=== PATIENT | female | born 1955 | race Caucasian/White ===

== ENCOUNTER 2021-07-23 06:20 | Emergency (ER) | payer MEDICARE ==
[2021-07-23] MEDS ORDERED: IBUPROFEN 600 MG TAB PO STA (06:53)
[2021-07-23] MEDS ORDERED: AUGMENTIN 500-1 EACH PO (07:00)
[2021-07-23] MEDS ORDERED: CEFTRIAXONE 1 GM VIAL IM ONE (07:00)
[2021-07-23] MEDS ORDERED: BACTRIM DS TAB1 EACH PO (07:00)
[2021-07-23 07:04] VITALS: BP 193/90
== END 2021-07-23 07:04 | disposition left against medical advice (07) ==
LOC: FSED 06:52
DX: L03.115 Cellulitis of right lower limb (principal); R00.0 Tachycardia, unspecified; I16.0 Hypertensive urgency; I10 Essential (primary) hypertension; E03.9 Hypothyroidism, unspecified; F17.210 Nicotine dependence, cigarettes, uncomplicated
CPT/HCPCS: 99282

== ENCOUNTER 2021-09-05 17:05 | Inpatient (IN) | payer MEDICARE ==
[~2021-09-05] VITALS: Ht 167.6 cm; Wt 153.9 kg
[~2021-09-05 17:05] MED LIST: AUGMENTIN 500-1 EACH PO; BACTRIM DS TAB1 EACH PO
[2021-09-05 17:30] LABS: BASOPHILS % 0.5 % (0.0-1.0); HEMATOCRIT 33.4 % (34.2-44.1); HEMOGLOBIN 9.3 g/dL (12.0-16.0); LYMPHOCYTES # (AUTO) 0.7 (1.0-3.2); LYMPHOCYTES % 8.4 % (18.0-39.1); MEAN CORPUSCULAR HEMOGLOBIN 28.2 pg (28-32); MEAN CORPUSCULAR HGB CONC 27.8 g/dL (31-35); MEAN CORPUSCULAR VOLUME 101.2 fL (81-99); MONOCYTES # (AUTO) 0.6 (0.2-0.8); MONOCYTES % 7.7 % (4.4-11.3); NEUTROPHILS # (AUTO) 6.4 (2.1-6.9); NEUTROPHILS % 78.2 % (38.7-80.0); PLATELET COUNT 195 x10e3/uL (140-360); RED CELL DISTRIBUTION WIDTH 19.4 % (11.7-14.4)
[2021-09-05] MEDS ORDERED: DILTIAZEM HCL 5 MG/ML 5 ML VIAL IV STA (17:43)
[2021-09-05 17:48] LABS: ALBUMIN 3.1 g/dL (3.5-5.0); ALBUMIN/GLOBULIN RATIO 0.7 (0.8-2.0); ANION GAP 16.6 mmol/L (8-16); CALCIUM 7.6 mg/dL (8.4-10.2); CREATININE, SERUM 3.66 mg/dL (0.57-1.11)
[2021-09-05 17:52] LABS: POTASSIUM 7.6 mmol/L (3.5-5.1)
[2021-09-05] MEDS ORDERED: SODIUM BICARBONATE 8.4% INJ 50 ML SYR IV STA (17:53)
[2021-09-05] MEDS ORDERED: DEXTROSE 50% SYRINGE 50 ML IV STA (17:53)
[2021-09-05] MEDS ORDERED: SOD POLYSTYRENE SULFONATE SUSP 15 GM/60 ML BTL PO ONE (18:00)
[2021-09-05] MEDS ORDERED: INSULIN REGULAR, HUMAN 100 UNIT/1 ML IV ONE (18:00)
[2021-09-05] MEDS ORDERED: CALCIUM GLUC 1 G/50 ML NACL 50 ML IV ONE (18:06)
[2021-09-05] MEDS ORDERED: SODIUM BICARBONATE 8.4% SYRING 50 ML ONE (18:07)
[2021-09-05] MEDS ORDERED: DEXTROSE 50% SYRINGE 50 ML IV ONE (18:07)
[2021-09-05] MEDS ORDERED: INSULIN REGULAR, HUMAN 100 UNIT/1 ML ONE (18:07)
[2021-09-05] MEDS ORDERED: SODIUM CHLORIDE 0.9% IV ONE (18:15)
[2021-09-05] MEDS ORDERED: CALCIUM GLUCONATE IV ONE (18:15)
[2021-09-05 18:16] LABS: INR 1.15; PROTHROMBIN TIME 15.7 seconds (11.9-14.5)
[2021-09-05 18:24] LABS: ABG HCO3 17 mmol/L (22-26); ABG PCO2 50 mmHg (35-45); ABG PH 7.15 (7.35-7.45); ABG PO2 223 mmHg (80-105)
[2021-09-05 18:25] LABS: ABG TCO2 19
[2021-09-05] MEDS ORDERED: ASPIRIN 81 MG CHEW TAB PO ONE (19:15)
[2021-09-05] MEDS ORDERED: SODIUM CHLORIDE 0.9% 1000ML 2,000 ML IV PRN (20:00)
[2021-09-05] MEDS ORDERED: HEPARIN SOD (PORCINE) 1000 UNIT/ML SDV IV PRN (20:00)
[2021-09-05 20:09] LABS: ABG HCO3 16 mmol/L (22-26); ABG PCO2 54 mmHg (35-45); ABG PH 7.08 (7.35-7.45); ABG PO2 144 mmHg (80-105); ABG TCO2 18
[2021-09-05 20:38] LABS: CLARITY,URINE SL CLOUDY (CLEAR); COLOR,URINE YELLOW (YELLOW); LEUKOCYTE ESTERASE ,URINE NEGATIVE (NEGATIVE); NITRITE,URINE NEGATIVE (NEGATIVE)
[2021-09-05 20:39] LABS: KETONES,URINE NEGATIVE (NEGATIVE); PROTEIN,URINE DIPSTICK >=300 (NEGATIVE); URINE UROBILINOGEN 0.2 mg/dL (0.2 - 1)
[2021-09-05 20:43] LABS: AMORPHOUS SEDIMENT,URINE FEW (FEW); BACTERIA,URINE FEW /HPF; EPITHELIAL CELLS,URINE FEW /LPF; RBC,URINE 0-5 /HPF (0-5); WBC,URINE (MAN) 0-5 /HPF (0-5)
[2021-09-05 21:36] LABS: HYPOCHROMASIA SLIGHT; LYMPHOCYTES % (MANUAL) 8 % (19-48); MONOCYTES % (MANUAL) 12 % (3.4-9.0); NEUTROPHILS % (MANUAL) 77 % (40-74); PLATELET ESTIMATE ADEQUATE; PLATELET MORPHOLOGY COMMENT NORMAL; RBC MORPHOLOGY COMMENT NORMAL
[2021-09-05] MEDS ORDERED: ASPIRIN 81 MG CHEW TAB ONE (23:06)
[2021-09-06] VITALS (31 sets, daily range): BP systolic 91–146; BP diastolic 53–129
[2021-09-06 00:55] LABS: ABG HCO3 19 mmol/L (22-26); ABG PCO2 47 mmHg (35-45); ABG PH 7.21 (7.35-7.45); ABG PO2 184 mmHg (80-105); ABG TCO2 20
[2021-09-06] MEDS ORDERED: LISINOPRIL10 MG PO (02:54)
[2021-09-06] MEDS ORDERED: METHIMAZOLE10 MG PO (02:54)
[2021-09-06] MEDS ORDERED: ZESTRIL10 MG PO (02:54)
[2021-09-06 05:09] LABS: HEMATOCRIT 26.2 % (34.2-44.1); HEMOGLOBIN 7.5 g/dL (12.0-16.0); LYMPHOCYTES # (AUTO) 0.5 (1.0-3.2); LYMPHOCYTES % 9.2 % (18.0-39.1); MEAN CORPUSCULAR HGB CONC 28.6 g/dL (31-35); MEAN CORPUSCULAR VOLUME 97.8 fL (81-99); MONOCYTES # (AUTO) 0.1 (0.2-0.8); MONOCYTES % 2.4 % (4.4-11.3); NEUTROPHILS # (AUTO) 4.2 (2.1-6.9); NEUTROPHILS % 86.4 % (38.7-80.0); PLATELET COUNT 155 x10e3/uL (140-360); RED BLOOD COUNT 2.68 x10e6/uL (3.6-5.1); RED CELL DISTRIBUTION WIDTH 18.8 % (11.7-14.4)
[2021-09-06 05:35] LABS: ANION GAP 14.1 mmol/L (8-16); CALCIUM 7.7 mg/dL (8.4-10.2); CREATININE, SERUM 3.3 mg/dL (0.57-1.11); MAGNESIUM 2.1 MG/DL (1.3-2.1)
[2021-09-06 05:54] LABS: POTASSIUM 6.1 mmol/L (3.5-5.1)
[2021-09-06 06:24] LABS: CREATINE KINASE MB 1.9 ng/mL (0-5.0)
[2021-09-06] MEDS ORDERED: DEXTROSE 50% SYRINGE 50 ML IV ONE (08:00)
[2021-09-06] MEDS ORDERED: INSULIN REGULAR, HUMAN 100 UNIT/1 ML IV ONE (08:00)
[2021-09-06] MEDS ORDERED: CALCIUM GLUC 1 G/50 ML NACL 50 ML IV ONE (08:00)
[2021-09-06] MEDS ORDERED: SODIUM CHLORIDE 0.9% 1000ML 2,000 ML IV PRN (08:30)
[2021-09-06] MEDS ORDERED: HEPARIN SOD (PORCINE) 1000 UNIT/ML SDV IV PRN (08:30)
[2021-09-06] MEDS ORDERED: MANNITOL 25% 12.5GM/50 ML VIAL IV PRN (08:30)
[2021-09-06] MEDS ORDERED: Vancomycin IV 1 GM in SODIUM CHLORIDE 0.9% 250ML 250 ML IV ONE ×2 (09:00→13:00)
[2021-09-06] MEDS ORDERED: AMIODARONE HCL 150 MG/100 ML BAG IV ONE (10:30)
[2021-09-06] MEDS ORDERED: AMIODARONE 900MG 500 ML IV SCH (10:40)
[2021-09-06 11:42] LABS: CREATININE,URINE RANDOM 245.31 mg/dL (47-110)
[2021-09-06 12:06] LABS: CREATINE KINASE MB 1.6 ng/mL (0-5.0)
[2021-09-06 12:21] LABS: FREE THYROXINE INDEX 1.9594 (1.4-3.8); THYROID STIMULATING HORMONE 0.058 uIU/mL (0.350-4.940)
[2021-09-06 13:13] LABS: TOTAL PROTEIN, URINE 423.3 mg/dL (1-14)
[2021-09-06] MEDS ORDERED: DEXTROSE 50% SYRINGE 50 ML IV PRN (13:30)
[2021-09-06] MEDS: METOPROLOL TARTRATE INJ 1 MG/ML VIAL IV PRN ×2 (14:01→20:03)
[2021-09-06] MEDS: INSULIN LISPRO 100 UNIT/1 ML 3ML VIAL SQ SCH ×2 (16:30→21:00)
[2021-09-06 19:19] LABS: CREATINE KINASE MB 1.2 ng/mL (0-5.0)
[2021-09-07] VITALS (26 sets, daily range): BP systolic 82–125; BP diastolic 53–80
[2021-09-07] MEDS: METOPROLOL TARTRATE INJ 1 MG/ML VIAL IV PRN ×3 (00:13→16:19)
[2021-09-07 05:21] LABS: ALBUMIN 2.6 g/dL (3.5-5.0); ALBUMIN/GLOBULIN RATIO 0.7 (0.8-2.0); ANION GAP 13.5 mmol/L (8-16); CALCIUM 7.3 mg/dL (8.4-10.2); CREATININE, SERUM 3.07 mg/dL (0.57-1.11); POTASSIUM 4.5 mmol/L (3.5-5.1)
[2021-09-07] MEDS: INSULIN LISPRO 100 UNIT/1 ML 3ML VIAL SQ SCH ×4 (07:21→20:37)
[2021-09-07] MEDS: FUROSEMIDE INJ 10 MG/ML 4 ML VIAL IV SCH ×2 (10:30→17:16)
[2021-09-07 10:37] LABS: % IRON SATURATION 13 % (15-50); IRON 32 ug/dL (50-170); TOTAL IRON BINDING CAPACITY 253 ug/dL (261-478); TRANSFERRIN 181 mg/dL (180-382)
[2021-09-07] MEDS: AMIODARONE HCL 200 MG TAB PO SCH (17:29)
[2021-09-07] MEDS: METOPROLOL TARTRATE 25 MG TAB PO SCH ×2 (17:29→17:35)
[2021-09-07] MEDS ORDERED: DIGOXIN INJ 0.25 MG/ML 2 ML AMP IV ONE (17:30)
[2021-09-08] VITALS (26 sets, daily range): BP systolic 83–134; BP diastolic 52–97
[2021-09-08] MEDS: FUROSEMIDE INJ 10 MG/ML 4 ML VIAL IV SCH ×3 (01:55→17:00)
[2021-09-08 04:43] LABS: BASOPHILS % 0.2 % (0.0-1.0); EOSINOPHILS # (AUTO) 0.1 (0.0-0.4); EOSINOPHILS % 0.8 % (0.0-6.0); HEMATOCRIT 27.5 % (34.2-44.1); HEMOGLOBIN 8.1 g/dL (12.0-16.0); LYMPHOCYTES # (AUTO) 1.1 (1.0-3.2); LYMPHOCYTES % 16.4 % (18.0-39.1); MEAN CORPUSCULAR HEMOGLOBIN 28.1 pg (28-32); MEAN CORPUSCULAR HGB CONC 29.5 g/dL (31-35); MEAN CORPUSCULAR VOLUME 95.5 fL (81-99); MONOCYTES # (AUTO) 0.6 (0.2-0.8); MONOCYTES % 8.9 % (4.4-11.3); NEUTROPHILS # (AUTO) 4.7 (2.1-6.9); NEUTROPHILS % 73.2 % (38.7-80.0); PLATELET COUNT 144 x10e3/uL (140-360); RED BLOOD COUNT 2.88 x10e6/uL (3.6-5.1); RED CELL DISTRIBUTION WIDTH 18.2 % (11.7-14.4)
[2021-09-08 05:03] LABS: ALBUMIN 2.7 g/dL (3.5-5.0); ALBUMIN/GLOBULIN RATIO 0.7 (0.8-2.0); ANION GAP 17.2 mmol/L (8-16); CREATININE, SERUM 3.56 mg/dL (0.57-1.11); POTASSIUM 4.2 mmol/L (3.5-5.1)
[2021-09-08 05:48] LABS: CALCIUM 6.9 mg/dL (8.4-10.2)
[2021-09-08] MEDS: METOPROLOL TARTRATE 25 MG TAB PO SCH ×5 (06:04→23:33)
[2021-09-08] MEDS: INSULIN LISPRO 100 UNIT/1 ML 3ML VIAL SQ SCH ×4 (07:30→20:31)
[2021-09-08] MEDS: AMIODARONE HCL 200 MG TAB PO SCH ×2 (08:22→17:00)
[2021-09-08] MEDS: METHIMAZOLE 5 MG TAB PO SCH (08:22)
[2021-09-08] MEDS: AMIODARONE 900MG 900 MG in Premix Bag 1 BAG IV SCH (13:17)
[2021-09-08] MEDS ORDERED: DIPHENOXYLATE/ATROPINE TAB PO ONE (18:30)
[2021-09-08] MEDS ORDERED: DIPHENOXYLATE/ATROPINE TAB PO PRN (18:30)
[2021-09-09] VITALS (26 sets, daily range): BP systolic 94–127; BP diastolic 61–113
[2021-09-09] MEDS: FUROSEMIDE INJ 10 MG/ML 4 ML VIAL IV SCH ×3 (02:29→17:03)
[2021-09-09] MEDS: METOPROLOL TARTRATE INJ 1 MG/ML VIAL IV PRN (04:57)
[2021-09-09] MEDS: METOPROLOL TARTRATE 25 MG TAB PO SCH ×4 (05:51→22:56)
[2021-09-09] MEDS: INSULIN LISPRO 100 UNIT/1 ML 3ML VIAL SQ SCH ×4 (07:30→20:13)
[2021-09-09] MEDS: METHIMAZOLE 5 MG TAB PO SCH (08:04)
[2021-09-09] MEDS: AMIODARONE HCL 200 MG TAB PO SCH ×2 (08:04→16:33)
[2021-09-09] MEDS: AMIODARONE 900MG 900 MG in Premix Bag 1 BAG IV SCH (16:08)
[2021-09-09] MEDS: APIXAB 2.5 MG TABLET PO SCH (16:33)
[2021-09-10] VITALS (25 sets, daily range): BP systolic 86–119; BP diastolic 49–90
[2021-09-10] MEDS: FUROSEMIDE INJ 10 MG/ML 4 ML VIAL IV SCH ×3 (02:15→12:07)
[2021-09-10] MEDS: METOPROLOL TARTRATE 25 MG TAB PO SCH ×4 (04:28→17:28)
[2021-09-10 07:28] LABS: ALBUMIN/GLOBULIN RATIO 0.9 (0.8-2.0); ANION GAP 15.2 mmol/L (8-16); CALCIUM 7.1 mg/dL (8.4-10.2); CREATININE, SERUM 4.05 mg/dL (0.57-1.11); POTASSIUM 4.2 mmol/L (3.5-5.1)
[2021-09-10] MEDS: INSULIN LISPRO 100 UNIT/1 ML 3ML VIAL SQ SCH ×4 (07:30→21:00)
[2021-09-10 08:26] LABS: BASOPHILS % 0.4 % (0.0-1.0); EOSINOPHILS # (AUTO) 0.2 (0.0-0.4); EOSINOPHILS % 2.2 % (0.0-6.0); HEMATOCRIT 29.7 % (34.2-44.1); HEMOGLOBIN 8.5 g/dL (12.0-16.0); LYMPHOCYTES # (AUTO) 1.3 (1.0-3.2); LYMPHOCYTES % 18.2 % (18.0-39.1); MEAN CORPUSCULAR HEMOGLOBIN 28.1 pg (28-32); MEAN CORPUSCULAR HGB CONC 28.6 g/dL (31-35); MEAN CORPUSCULAR VOLUME 98.3 fL (81-99); MONOCYTES # (AUTO) 0.5 (0.2-0.8); MONOCYTES % 7.3 % (4.4-11.3); NEUTROPHILS # (AUTO) 5.1 (2.1-6.9); NEUTROPHILS % 71.3 % (38.7-80.0); PLATELET COUNT 168 x10e3/uL (140-360); RED BLOOD COUNT 3.02 x10e6/uL (3.6-5.1)
[2021-09-10] MEDS: AMIODARONE HCL 200 MG TAB PO SCH ×2 (08:26→17:28)
[2021-09-10] MEDS: METHIMAZOLE 5 MG TAB PO SCH (08:26)
[2021-09-10] MEDS: APIXAB 2.5 MG TABLET PO SCH ×2 (08:26→17:28)
[2021-09-10] MEDS: AMIODARONE 900MG 900 MG in Premix Bag 1 BAG IV SCH ×2 (12:07→21:10)
[2021-09-10] MEDS ORDERED: AMIODARONE 900MG 500 ML IV ONE (19:16)
[2021-09-11] VITALS (28 sets, daily range): BP systolic 92–157; BP diastolic 48–112
[2021-09-11] MEDS: FUROSEMIDE INJ 10 MG/ML 4 ML VIAL IV SCH ×3 (02:13→18:00)
[2021-09-11] MEDS: METOPROLOL TARTRATE 25 MG TAB PO SCH ×4 (06:18→18:04)
[2021-09-11] MEDS: INSULIN LISPRO 100 UNIT/1 ML 3ML VIAL SQ SCH ×4 (07:30→20:54)
[2021-09-11] MEDS ORDERED: BENZOCAINE 20% SPR 60 ML CAN ONE (08:34)
[2021-09-11] MEDS ORDERED: SODIUM CHLORIDE 0.9% 1000ML 1,000 ML ONE (08:34)
[2021-09-11] MEDS: APIXAB 2.5 MG TABLET PO SCH ×2 (09:00→18:04)
[2021-09-11] MEDS: AMIODARONE HCL 200 MG TAB PO SCH ×2 (09:00→18:04)
[2021-09-11] MEDS ORDERED: ALBUMIN 25% 25GM 100ML 100 ML IV ONE ×2 (10:00→11:00)
[2021-09-11] MEDS ORDERED: ALBUMIN 25% 25GM 100ML 0.25 GM/ML BTL IV ONE ×2 (10:00)
[2021-09-11] MEDS ORDERED: PROPOFOL IV EMULSION 10 MG/ML 20 ML VIAL ONE (12:04)
[2021-09-11] MEDS ORDERED: LIDOCAINE HCL 2% LOCAL INJ 5 ML SDV VIAL INJ ONE (12:04)
[2021-09-11] MEDS ORDERED: KETAMINE HCL INJ 50 MG/ML 10 ML VIAL ONE (12:27)
[2021-09-11] MEDS: METHIMAZOLE 5 MG TAB PO SCH (15:03)
[2021-09-12] VITALS (30 sets, daily range): BP systolic 89–158; BP diastolic 37–127
[2021-09-12] MEDS: FUROSEMIDE INJ 10 MG/ML 4 ML VIAL IV SCH (02:01)
[2021-09-12 05:46] LABS: ALBUMIN 3.3 g/dL (3.5-5.0); ALBUMIN/GLOBULIN RATIO 0.9 (0.8-2.0); ANION GAP 17.3 mmol/L (8-16); CREATININE, SERUM 4.71 mg/dL (0.57-1.11); POTASSIUM 4.3 mmol/L (3.5-5.1)
[2021-09-12 05:50] LABS: CALCIUM 6.8 mg/dL (8.4-10.2)
[2021-09-12] MEDS: METOPROLOL TARTRATE 25 MG TAB PO SCH ×5 (06:03→23:31)
[2021-09-12] MEDS: INSULIN LISPRO 100 UNIT/1 ML 3ML VIAL SQ SCH ×4 (07:30→20:57)
[2021-09-12] MEDS: APIXAB 2.5 MG TABLET PO SCH ×2 (08:47→17:09)
[2021-09-12] MEDS: METHIMAZOLE 5 MG TAB PO SCH (08:47)
[2021-09-12] MEDS: AMIODARONE HCL 200 MG TAB PO SCH ×2 (08:47→17:09)
[2021-09-12] MEDS: FUROSEMIDE 40 MG TAB PO SCH (17:09)
[2021-09-13] VITALS (37 sets, daily range): BP systolic 96–143; BP diastolic 35–79
[2021-09-13 05:26] LABS: ALBUMIN 3.2 g/dL (3.5-5.0); ALBUMIN/GLOBULIN RATIO 0.8 (0.8-2.0); ANION GAP 18.2 mmol/L (8-16); CALCIUM 7.3 mg/dL (8.4-10.2); POTASSIUM 4.2 mmol/L (3.5-5.1)
[2021-09-13] MEDS: FUROSEMIDE 40 MG TAB PO SCH ×2 (05:47→17:12)
[2021-09-13] MEDS: METOPROLOL TARTRATE 25 MG TAB PO SCH ×3 (05:48→17:13)
[2021-09-13] MEDS: INSULIN LISPRO 100 UNIT/1 ML 3ML VIAL SQ SCH ×4 (07:16→20:43)
[2021-09-13] MEDS: AMIODARONE HCL 200 MG TAB PO SCH ×2 (08:34→17:12)
[2021-09-13] MEDS: APIXAB 2.5 MG TABLET PO SCH ×2 (08:34→17:12)
[2021-09-13] MEDS: METHIMAZOLE 5 MG TAB PO SCH (11:16)
[2021-09-14] VITALS (12 sets, daily range): BP systolic 97–134; BP diastolic 49–81
[2021-09-14] MEDS: METOPROLOL TARTRATE 25 MG TAB PO SCH ×4 (00:12→17:39)
[2021-09-14 04:37] LABS: ALBUMIN 3.1 g/dL (3.5-5.0); ALBUMIN/GLOBULIN RATIO 0.8 (0.8-2.0); CREATININE, SERUM 4.49 mg/dL (0.57-1.11)
[2021-09-14] MEDS: FUROSEMIDE 40 MG TAB PO SCH ×2 (05:41→17:37)
[2021-09-14] MEDS: INSULIN LISPRO 100 UNIT/1 ML 3ML VIAL SQ SCH ×4 (07:30→21:00)
[2021-09-14 07:40] LABS: BASOPHILS # (AUTO) 0.1 (0.0-0.1); BASOPHILS % 0.7 % (0.0-1.0); EOSINOPHILS # (AUTO) 0.2 (0.0-0.4); EOSINOPHILS % 2.8 % (0.0-6.0); HEMATOCRIT 28.8 % (34.2-44.1); HEMOGLOBIN 8.4 g/dL (12.0-16.0); LYMPHOCYTES # (AUTO) 1.1 (1.0-3.2); LYMPHOCYTES % 15.1 % (18.0-39.1); MEAN CORPUSCULAR HEMOGLOBIN 28.2 pg (28-32); MEAN CORPUSCULAR HGB CONC 29.2 g/dL (31-35); MEAN CORPUSCULAR VOLUME 96.6 fL (81-99); MONOCYTES # (AUTO) 0.7 (0.2-0.8); MONOCYTES % 9.4 % (4.4-11.3); NEUTROPHILS % 71.4 % (38.7-80.0); PLATELET COUNT 187 x10e3/uL (140-360); RED BLOOD COUNT 2.98 x10e6/uL (3.6-5.1); RED CELL DISTRIBUTION WIDTH 17.7 % (11.7-14.4)
[2021-09-14] MEDS: AMIODARONE HCL 200 MG TAB PO SCH ×2 (09:00→12:12)
[2021-09-14] MEDS: APIXAB 2.5 MG TABLET PO SCH (09:00)
[2021-09-14] MEDS: HEPARIN 25,000 UNIT 1,000 UNIT in DEXTROSE 5% 250ML 250 ML IV SCH ×2 (11:57→20:00)
[2021-09-14] MEDS ORDERED: SODIUM CHLORIDE 0.9% 250ML 250 ML ONE (12:06)
[2021-09-14] MEDS: METHIMAZOLE 5 MG TAB PO SCH (12:11)
[2021-09-14 12:23] LABS: INR 0.99
[2021-09-15] VITALS (7 sets, daily range): BP systolic 99–132; BP diastolic 58–92
[2021-09-15] MEDS: HEPARIN 25,000 UNIT 1,000 UNIT in DEXTROSE 5% 250ML 250 ML IV SCH ×3 (03:14→22:00)
[2021-09-15] MEDS: FUROSEMIDE 40 MG TAB PO SCH ×2 (06:49→18:00)
[2021-09-15 07:04] LABS: BASOPHILS # (AUTO) 0.1 (0.0-0.1); BASOPHILS % 0.7 % (0.0-1.0); EOSINOPHILS # (AUTO) 0.3 (0.0-0.4); EOSINOPHILS % 3.7 % (0.0-6.0); HEMATOCRIT 30.5 % (34.2-44.1); HEMOGLOBIN 8.8 g/dL (12.0-16.0); LYMPHOCYTES # (AUTO) 1.3 (1.0-3.2); LYMPHOCYTES % 16.2 % (18.0-39.1); MEAN CORPUSCULAR HEMOGLOBIN 27.8 pg (28-32); MEAN CORPUSCULAR HGB CONC 28.9 g/dL (31-35); MEAN CORPUSCULAR VOLUME 96.5 fL (81-99); MONOCYTES # (AUTO) 0.9 (0.2-0.8); MONOCYTES % 11.3 % (4.4-11.3); NEUTROPHILS # (AUTO) 5.5 (2.1-6.9); NEUTROPHILS % 67.5 % (38.7-80.0); PLATELET COUNT 189 x10e3/uL (140-360); RED BLOOD COUNT 3.16 x10e6/uL (3.6-5.1); RED CELL DISTRIBUTION WIDTH 17.4 % (11.7-14.4)
[2021-09-15 07:29] LABS: ALBUMIN 3.2 g/dL (3.5-5.0); ALBUMIN/GLOBULIN RATIO 0.9 (0.8-2.0); ANION GAP 14.8 mmol/L (8-16); CREATININE, SERUM 3.32 mg/dL (0.57-1.11); POTASSIUM 3.8 mmol/L (3.5-5.1)
[2021-09-15] MEDS: INSULIN LISPRO 100 UNIT/1 ML 3ML VIAL SQ SCH ×4 (07:30→20:37)
[2021-09-15] MEDS: METOPROLOL TARTRATE 25 MG TAB PO SCH ×4 (07:39→19:01)
[2021-09-15] MEDS: METHIMAZOLE 5 MG TAB PO SCH (08:55)
[2021-09-15] MEDS: AMIODARONE HCL 200 MG TAB PO SCH ×2 (08:55→16:19)
[2021-09-15] MEDS ORDERED: LIDOCAINE HCL 1% LOCAL INJ 20 ML VIAL INJ ONE (09:00)
[2021-09-15] MEDS ORDERED: HEPARIN 25,000 UNIT 25,000 UNIT in DEXTROSE 5% 250ML 250 ML IV SCH (09:30)
[2021-09-15] MEDS ORDERED: HEPARIN 25,000 UNIT DRIP IV ONE (10:00)
[2021-09-16] VITALS (8 sets, daily range): BP systolic 101–127; BP diastolic 49–67
[2021-09-16] MEDS: METOPROLOL TARTRATE 25 MG TAB PO SCH ×4 (00:36→17:30)
[2021-09-16] MEDS: FUROSEMIDE 40 MG TAB PO SCH ×2 (05:41→17:12)
[2021-09-16 06:47] LABS: BASOPHILS # (AUTO) 0.1 (0.0-0.1); BASOPHILS % 0.8 % (0.0-1.0); EOSINOPHILS # (AUTO) 0.3 (0.0-0.4); EOSINOPHILS % 3.6 % (0.0-6.0); HEMATOCRIT 29.7 % (34.2-44.1); HEMOGLOBIN 8.6 g/dL (12.0-16.0); LYMPHOCYTES # (AUTO) 1.1 (1.0-3.2); LYMPHOCYTES % 14.8 % (18.0-39.1); MEAN CORPUSCULAR HEMOGLOBIN 27.7 pg (28-32); MEAN CORPUSCULAR VOLUME 95.8 fL (81-99); MONOCYTES # (AUTO) 0.9 (0.2-0.8); MONOCYTES % 12.6 % (4.4-11.3); NEUTROPHILS # (AUTO) 4.9 (2.1-6.9); NEUTROPHILS % 67.1 % (38.7-80.0); PLATELET COUNT 186 x10e3/uL (140-360); RED CELL DISTRIBUTION WIDTH 17.6 % (11.7-14.4)
[2021-09-16 07:10] LABS: ALBUMIN 3.2 g/dL (3.5-5.0); ALBUMIN/GLOBULIN RATIO 0.9 (0.8-2.0); ANION GAP 16.9 mmol/L (8-16); CALCIUM 7.8 mg/dL (8.4-10.2); CREATININE, SERUM 4.27 mg/dL (0.57-1.11); POTASSIUM 3.9 mmol/L (3.5-5.1)
[2021-09-16] MEDS: INSULIN LISPRO 100 UNIT/1 ML 3ML VIAL SQ SCH ×4 (07:30→21:00)
[2021-09-16] MEDS: AMIODARONE HCL 200 MG TAB PO SCH ×2 (08:28→17:12)
[2021-09-16] MEDS: METHIMAZOLE 5 MG TAB PO SCH (08:28)
[2021-09-16] MEDS ORDERED: LIDOCAINE HCL 1% LOCAL INJ 20 ML VIAL INJ ONE (10:00)
[2021-09-16] MEDS ORDERED: SODIUM HYPOCHLORITE 0.25% 480 ML SOLN IR ONE (10:15)
[2021-09-16] MEDS: APIXAB 2.5 MG TABLET PO SCH (19:14)
[2021-09-17] VITALS (8 sets, daily range): BP systolic 109–146; BP diastolic 51–72
[2021-09-17 05:59] LABS: BASOPHILS # (AUTO) 0.1 (0.0-0.1); BASOPHILS % 0.8 % (0.0-1.0); EOSINOPHILS # (AUTO) 0.2 (0.0-0.4); EOSINOPHILS % 3.3 % (0.0-6.0); HEMATOCRIT 32.7 % (34.2-44.1); HEMOGLOBIN 9.2 g/dL (12.0-16.0); LYMPHOCYTES # (AUTO) 1.2 (1.0-3.2); LYMPHOCYTES % 16.7 % (18.0-39.1); MEAN CORPUSCULAR HEMOGLOBIN 27.8 pg (28-32); MEAN CORPUSCULAR HGB CONC 28.1 g/dL (31-35); MEAN CORPUSCULAR VOLUME 98.8 fL (81-99); MONOCYTES # (AUTO) 0.9 (0.2-0.8); MONOCYTES % 11.7 % (4.4-11.3); NEUTROPHILS # (AUTO) 4.9 (2.1-6.9); NEUTROPHILS % 66.5 % (38.7-80.0); PLATELET COUNT 181 x10e3/uL (140-360); RED BLOOD COUNT 3.31 x10e6/uL (3.6-5.1); RED CELL DISTRIBUTION WIDTH 17.7 % (11.7-14.4)
[2021-09-17] MEDS: FUROSEMIDE 40 MG TAB PO SCH ×2 (06:00→18:00)
[2021-09-17 06:20] LABS: ALBUMIN 3.2 g/dL (3.5-5.0); ALBUMIN/GLOBULIN RATIO 0.9 (0.8-2.0); ANION GAP 18.2 mmol/L (8-16); CALCIUM 7.9 mg/dL (8.4-10.2); CREATININE, SERUM 4.87 mg/dL (0.57-1.11); POTASSIUM 4.2 mmol/L (3.5-5.1)
[2021-09-17] MEDS: INSULIN LISPRO 100 UNIT/1 ML 3ML VIAL SQ SCH ×5 (07:02→20:39)
[2021-09-17] MEDS: METOPROLOL TARTRATE 25 MG TAB PO SCH ×2 (09:00→17:00)
[2021-09-17] MEDS ORDERED: APIXAB 2.5 MG TABLET PO SCH (09:00)
[2021-09-17] MEDS: AMIODARONE HCL 200 MG TAB PO SCH ×2 (10:40→17:00)
[2021-09-17] MEDS: METHIMAZOLE 5 MG TAB PO SCH (10:40)
[2021-09-17] MEDS: APIXAB 2.5 MG TABLET PO SCH ×2 (10:40→17:00)
[2021-09-17] MEDS ORDERED: HEPARIN SOD (PORCINE) 1000 UNIT/ML SDV ONE (16:38)
[2021-09-18] VITALS (8 sets, daily range): BP systolic 97–134; BP diastolic 42–70
[2021-09-18] MEDS: FUROSEMIDE 40 MG TAB PO SCH ×2 (05:32→17:45)
[2021-09-18] MEDS: INSULIN LISPRO 100 UNIT/1 ML 3ML VIAL SQ SCH ×4 (07:30→21:00)
[2021-09-18 09:06] LABS: BASOPHILS # (AUTO) 0.1 (0.0-0.1); BASOPHILS % 1.1 % (0.0-1.0); EOSINOPHILS # (AUTO) 0.2 (0.0-0.4); EOSINOPHILS % 2.7 % (0.0-6.0); HEMATOCRIT 33.5 % (34.2-44.1); HEMOGLOBIN 9.9 g/dL (12.0-16.0); LYMPHOCYTES # (AUTO) 1.4 (1.0-3.2); LYMPHOCYTES % 17.1 % (18.0-39.1); MEAN CORPUSCULAR HGB CONC 29.6 g/dL (31-35); MEAN CORPUSCULAR VOLUME 94.9 fL (81-99); MONOCYTES # (AUTO) 0.8 (0.2-0.8); MONOCYTES % 10.2 % (4.4-11.3); NEUTROPHILS # (AUTO) 5.5 (2.1-6.9); NEUTROPHILS % 68.4 % (38.7-80.0); PLATELET COUNT 191 x10e3/uL (140-360); RED BLOOD COUNT 3.53 x10e6/uL (3.6-5.1); RED CELL DISTRIBUTION WIDTH 17.8 % (11.7-14.4)
[2021-09-18] MEDS: METOPROLOL TARTRATE 25 MG TAB PO SCH ×2 (09:15→17:45)
[2021-09-18] MEDS: AMIODARONE HCL 200 MG TAB PO SCH ×2 (09:15→17:45)
[2021-09-18] MEDS: METHIMAZOLE 5 MG TAB PO SCH (09:15)
[2021-09-18 09:55] LABS: ANION GAP 18.2 mmol/L (8-16); CREATININE, SERUM 4.01 mg/dL (0.57-1.11); POTASSIUM 4.2 mmol/L (3.5-5.1)
[2021-09-19] VITALS (8 sets, daily range): BP systolic 107–125; BP diastolic 48–54
[2021-09-19] MEDS: FUROSEMIDE 40 MG TAB PO SCH ×2 (05:18→17:40)
[2021-09-19] MEDS: INSULIN LISPRO 100 UNIT/1 ML 3ML VIAL SQ SCH ×4 (07:30→20:16)
[2021-09-19] MEDS: AMIODARONE HCL 200 MG TAB PO SCH ×2 (08:45→17:40)
[2021-09-19] MEDS: METHIMAZOLE 5 MG TAB PO SCH (08:45)
[2021-09-19] MEDS: METOPROLOL TARTRATE 25 MG TAB PO SCH ×2 (08:45→15:58)
[2021-09-19 08:57] LABS: BASOPHILS # (AUTO) 0.1 (0.0-0.1); EOSINOPHILS # (AUTO) 0.2 (0.0-0.4); EOSINOPHILS % 2.8 % (0.0-6.0); HEMATOCRIT 33.5 % (34.2-44.1); HEMOGLOBIN 9.8 g/dL (12.0-16.0); LYMPHOCYTES # (AUTO) 1.3 (1.0-3.2); LYMPHOCYTES % 16.8 % (18.0-39.1); MEAN CORPUSCULAR HEMOGLOBIN 28.2 pg (28-32); MEAN CORPUSCULAR HGB CONC 29.3 g/dL (31-35); MEAN CORPUSCULAR VOLUME 96.5 fL (81-99); MONOCYTES # (AUTO) 0.8 (0.2-0.8); MONOCYTES % 9.9 % (4.4-11.3); NEUTROPHILS # (AUTO) 5.5 (2.1-6.9); NEUTROPHILS % 69.1 % (38.7-80.0); PLATELET COUNT 194 x10e3/uL (140-360); RED BLOOD COUNT 3.47 x10e6/uL (3.6-5.1)
[2021-09-19] MEDS ORDERED: SODIUM CHLORIDE 0.9% 250ML 500 ML IV PRN (09:00)
[2021-09-19] MEDS ORDERED: HEPARIN SOD (PORCINE) 1000 UNIT/ML SDV IV PRN (09:00)
[2021-09-19] MEDS ORDERED: ALBUMIN 25% 12.5GM 0.25 GM/ML BTL IV PRN (09:00)
[2021-09-19] MEDS ORDERED: HEPARIN 25,000 UNIT 1,000 UNIT in DEXTROSE 5% 250ML 250 ML IV SCH (11:30)
[2021-09-19] MEDS ORDERED: HEPARIN 25,000 UNIT 1,500 UNIT in DEXTROSE 5% 250ML 250 ML IV SCH (11:30)
[2021-09-19] MEDS ORDERED: SODIUM CHLORIDE 0.9% 1000ML 1,000 ML ONE (14:37)
[2021-09-20] VITALS (8 sets, daily range): BP systolic 103–129; BP diastolic 50–62
[2021-09-20] MEDS ORDERED: HEPARIN 25,000 UNIT 1,000 UNIT in DEXTROSE 5% 250ML 250 ML IV SCH (02:13)
[2021-09-20] MEDS: FUROSEMIDE 40 MG TAB PO SCH ×2 (06:00→16:50)
[2021-09-20 06:20] LABS: BASOPHILS # (AUTO) 0.1 (0.0-0.1); BASOPHILS % 0.7 % (0.0-1.0); EOSINOPHILS # (AUTO) 0.3 (0.0-0.4); EOSINOPHILS % 2.8 % (0.0-6.0); HEMATOCRIT 29.9 % (34.2-44.1); HEMOGLOBIN 8.7 g/dL (12.0-16.0); LYMPHOCYTES # (AUTO) 1.7 (1.0-3.2); LYMPHOCYTES % 17.9 % (18.0-39.1); MEAN CORPUSCULAR HGB CONC 29.1 g/dL (31-35); MEAN CORPUSCULAR VOLUME 96.1 fL (81-99); MONOCYTES # (AUTO) 1.2 (0.2-0.8); MONOCYTES % 12.2 % (4.4-11.3); NEUTROPHILS # (AUTO) 6.4 (2.1-6.9); NEUTROPHILS % 65.9 % (38.7-80.0); PLATELET COUNT 139 x10e3/uL (140-360); RED BLOOD COUNT 3.11 x10e6/uL (3.6-5.1); RED CELL DISTRIBUTION WIDTH 17.7 % (11.7-14.4)
[2021-09-20 06:33] LABS: INR 0.95; PROTHROMBIN TIME 13.6 seconds (11.9-14.5)
[2021-09-20] MEDS: INSULIN LISPRO 100 UNIT/1 ML 3ML VIAL SQ SCH ×4 (07:30→20:33)
[2021-09-20] MEDS: METHIMAZOLE 5 MG TAB PO SCH (09:00)
[2021-09-20] MEDS: AMIODARONE HCL 200 MG TAB PO SCH ×2 (09:00→16:48)
[2021-09-20] MEDS: METOPROLOL TARTRATE 25 MG TAB PO SCH ×2 (09:00→16:48)
[2021-09-20] MEDS ORDERED: SODIUM CHLORIDE 0.9% 250ML 250 ML ONE (12:10)
[2021-09-20] MEDS ORDERED: LIDOCAINE HCL 1% LOCAL INJ 20 ML VIAL ONE (12:10)
[2021-09-20] MEDS ORDERED: HEPARIN SOD (PORCINE) 1000 UNIT/ML SDV ONE (12:57)
[2021-09-20] MEDS: APIXAB 2.5 MG TABLET PO SCH (17:09)
[2021-09-21] VITALS (7 sets, daily range): BP systolic 89–126; BP diastolic 51–56
[2021-09-21] MEDS: FUROSEMIDE 40 MG TAB PO SCH ×2 (06:00→17:40)
[2021-09-21 07:07] LABS: ANION GAP 19.5 mmol/L (8-16); CALCIUM 7.7 mg/dL (8.4-10.2); CREATININE, SERUM 6.05 mg/dL (0.57-1.11); POTASSIUM 4.5 mmol/L (3.5-5.1)
[2021-09-21] MEDS: INSULIN LISPRO 100 UNIT/1 ML 3ML VIAL SQ SCH ×3 (07:30→16:30)
[2021-09-21] MEDS: AMIODARONE HCL 200 MG TAB PO SCH ×2 (09:00→17:39)
[2021-09-21] MEDS: APIXAB 2.5 MG TABLET PO SCH ×2 (09:00→17:39)
[2021-09-21] MEDS: METHIMAZOLE 5 MG TAB PO SCH (09:00)
[2021-09-21] MEDS: METOPROLOL TARTRATE 25 MG TAB PO SCH ×2 (09:00→17:40)
[2021-09-21] MEDS ORDERED: ELIQUIS2.5 MG PO (14:50)
[2021-09-21] MEDS ORDERED: AMIODARONE HCL100 MG PO (14:51)
[2021-09-21] MEDS ORDERED: METHIMAZOLE5 MG PO (14:51)
[2021-09-21] MEDS ORDERED: METOPROLOL TART25 MG PO (14:52)
[2021-09-21] MEDS ORDERED: LASIX40 MG PO (14:52)
== END 2021-09-21 20:15 | disposition home health service (06) | DRG 673 ==
LOC: ER 17:15 → ERHOLD 19:01 → ICU 09-06 02:25 → MED/SURG3 09-14 03:42
PROC: 02HV33Z Insertion of Infusion Device into Superior Vena Cava, Percutaneous Approach (ICD-10-PCS; principal; 2021-09-05)
PROC: B548ZZA Ultrasonography of Superior Vena Cava, Guidance (ICD-10-PCS; 2021-09-05)
PROC: 5A1D70Z Performance of Urinary Filtration, Intermittent, Less than 6 Hours Per Day (ICD-10-PCS; 2021-09-05)
PROC: 5A09357 Assistance with Respiratory Ventilation, Less than 24 Consecutive Hours, Continuous Positive Airway Pressure (ICD-10-PCS; 2021-09-05)
PROC: 5A2204Z Restoration of Cardiac Rhythm, Single (ICD-10-PCS; 2021-09-11)
PROC: B24BZZ4 Ultrasonography of Heart with Aorta, Transesophageal (ICD-10-PCS; 2021-09-11)
PROC: 0JBQ0ZZ Excision of Right Foot Subcutaneous Tissue and Fascia, Open Approach (ICD-10-PCS; 2021-09-16)
PROC: 0JBL0ZZ Excision of Right Upper Leg Subcutaneous Tissue and Fascia, Open Approach (ICD-10-PCS; 2021-09-16)
PROC: 0JBN0ZZ Excision of Right Lower Leg Subcutaneous Tissue and Fascia, Open Approach (ICD-10-PCS; 2021-09-16)
PROC: 0JH63XZ Insertion of Tunneled Vascular Access Device into Chest Subcutaneous Tissue and Fascia, Percutaneous Approach (ICD-10-PCS; 2021-09-20)
PROC: 02H633Z Insertion of Infusion Device into Right Atrium, Percutaneous Approach (ICD-10-PCS; 2021-09-20)
PROC: B5181ZA Fluoroscopy of Superior Vena Cava using Low Osmolar Contrast, Guidance (ICD-10-PCS; 2021-09-20)
DX: N17.0 Acute kidney failure with tubular necrosis (principal); J96.00 Acute respiratory failure, unspecified whether with hypoxia or hypercapnia; I50.33 Acute on chronic diastolic (congestive) heart failure; Z68.43 Body mass index [BMI] 50.0-59.9, adult; L97.819 Non-pressure chronic ulcer of other part of right lower leg with unspecified severity; I13.2 Hypertensive heart and chronic kidney disease with heart failure and with stage 5 chronic kidney disease, or end stage renal disease; L03.115 Cellulitis of right lower limb; E66.01 Morbid (severe) obesity due to excess calories; F17.210 Nicotine dependence, cigarettes, uncomplicated; E87.5 Hyperkalemia; G47.33 Obstructive sleep apnea (adult) (pediatric); J44.9 Chronic obstructive pulmonary disease, unspecified; N18.5 Chronic kidney disease, stage 5; E11.22 Type 2 diabetes mellitus with diabetic chronic kidney disease; I48.0 Paroxysmal atrial fibrillation; E05.90 Thyrotoxicosis, unspecified without thyrotoxic crisis or storm; Z88.8 Allergy status to other drugs, medicaments and biological substances; Z20.822 Contact with and (suspected) exposure to COVID-19
CPT/HCPCS: 29581; 36415; 36555; 36558; 36600; 51700; 71045; 74470; 76770; 76937; 77001; 80048; 80053; 81001; 82550; 82553; 82570; 82728; 82805; 82948; 83036; 83516; 83540; 83735; 83880; 84100; 84156; 84165; 84300; 84436; 84439; 84443; 84466; 84479; 84481; 84484; 84550; 85025; 85379; 85610; 85730; 86021; 86039; 86160; 86225; 86235; 86255; 86256; 86376; 86704; 86706; 87040; 87340; 87493; 93005; 93306; 93307; 93312; 93325; 94660; 94760; 94799; 97139; 97605; 97606; 99251; 99285; J0610; J0696; J1160; J1644; J1817; J1940; J2001; J2150; J3370; J7030; J7050; J7799; P9047

== ENCOUNTER 2022-10-10 12:26 | Inpatient (IN) | payer MEDICARE ==
[2022-10-10] VITALS (14 sets, daily range): BP systolic 103–135; BP diastolic 15–92; PULSE 104–114; RESP 18–30; TEMP 99.8; O2SAT 93–94
[~2022-10-10] VITALS: Ht 167.6 cm; Wt 144.9 kg
[~2022-10-10 12:26] MED LIST changes: +AMIODARONE HCL100 MG PO; +ELIQUIS2.5 MG PO; +LASIX40 MG PO; +LISINOPRIL10 MG PO; +METHIMAZOLE10 MG PO; +METHIMAZOLE5 MG PO; +METOPROLOL TART25 MG PO; +ZESTRIL10 MG PO
[2022-10-10] MEDS ORDERED: SODIUM CHLORIDE 0.9% 1000ML 1,000 ML IV ONE (12:45)
[2022-10-10] MEDS ORDERED: CEFTRIAXONE 1 GM VIAL IV SCH (12:45)
[2022-10-10 13:13] LABS: BASOPHILS % 0.2 % (0.0-1.0); HEMATOCRIT 34.7 % (34.2-44.1); HEMOGLOBIN 11.1 g/dL (12.0-16.0); LYMPHOCYTES # (AUTO) 0.2 (1.0-3.2); LYMPHOCYTES % 1.6 % (18.0-39.1); MEAN CORPUSCULAR HEMOGLOBIN 30.1 pg (28-32); MONOCYTES # (AUTO) 0.3 (0.2-0.8); MONOCYTES % 2.6 % (4.4-11.3); NEUTROPHILS % 94.8 % (38.7-80.0); PLATELET COUNT 124 x10e3/uL (140-360); RED BLOOD COUNT 3.69 x10e6/uL (3.6-5.1)
[2022-10-10 13:24] LABS: INR 1.29; PROTHROMBIN TIME 16.8 seconds (11.9-14.5)
[2022-10-10 13:25] LABS: PARTIAL THROMBOPLASTIN TIME 28.7 seconds (23.8-35.5)
[2022-10-10 13:32] LABS: ALBUMIN/GLOBULIN RATIO 0.8 (0.8-2.0); ANION GAP 25.1 mmol/L (8-16); CALCIUM 8.4 mg/dL (8.4-10.2); CREATININE, SERUM 5.15 mg/dL (0.57-1.11); POTASSIUM 4.1 mmol/L (3.5-5.1)
[2022-10-10 13:56] LABS: BAND NEUTROPHILS % (MANUAL) 1 %; LYMPHOCYTES % (MANUAL) 1 % (19-48); MONOCYTES % (MANUAL) 8 % (3.4-9.0); NEUTROPHILS % (MANUAL) 90 % (40-74); PLATELET ESTIMATE SLIGHTLY DECREASED
[2022-10-10 13:57] LABS: PLATELET MORPHOLOGY COMMENT NORMAL; RBC MORPHOLOGY COMMENT NORMAL
[2022-10-10] MEDS ORDERED: ACETAMINOPHEN 325 MG TAB ONE (14:11)
[2022-10-10] MEDS ORDERED: SODIUM CHLORIDE FLUSH 10 ML SYR INJ PRN (15:00)
[2022-10-10] MEDS ORDERED: ONDANSETRON HCL INJ 2MG/ML 2ML 2 MG/ML VIAL IV PRN (15:00)
[2022-10-10] MEDS ORDERED: Vancomycin IV 2 GM in SODIUM CHLORIDE 0.9% 500ML 500 ML IV ONE (15:15)
[2022-10-10] MEDS ORDERED: LIDOCAINE HCL 1% LOCAL INJ 20 ML VIAL ONE (15:47)
[2022-10-10] MEDS ORDERED: NOREPINEPHRINE 8 MG/D5W 250 ML 250 ML ONE (16:05)
[2022-10-10] MEDS ORDERED: SODIUM CHLORIDE 0.9% 500ML 500 ML IV ONE (16:15)
[2022-10-10 16:54] LABS: CLARITY,URINE TURBID (CLEAR); COLOR,URINE BROWN (YELLOW); KETONES,URINE TRACE (NEGATIVE); LEUKOCYTE ESTERASE ,URINE LARGE (NEGATIVE); NITRITE,URINE NEGATIVE (NEGATIVE); PROTEIN,URINE DIPSTICK >=300 (NEGATIVE); URINE UROBILINOGEN 1 mg/dL (0.2 - 1)
[2022-10-10] MEDS: NOREPINEPHRINE 8 MG/D5W 250 ML 250 ML IV SCH (17:00)
[2022-10-10 17:15] LABS: BACTERIA,URINE MANY /HPF; EPITHELIAL CELLS,URINE FEW /LPF; WBC,URINE (MAN) 21-50 /HPF (0-5)
[2022-10-10] MEDS: APIXAB 2.5 MG TABLET PO SCH (17:16)
[2022-10-10] MEDS ORDERED: DEXTROSE 50% SYRINGE 50 ML IV PRN (23:15)
[2022-10-11] VITALS (89 sets, daily range): BP systolic 80–181; BP diastolic 47–153; PULSE 85–127; RESP 14–44; TEMP 98.4–100.6; O2SAT 88–100
[2022-10-11] MEDS: ACETAMINOPHEN 325 MG TAB PO PRN (00:30)
[2022-10-11] MEDS: NOREPINEPHRINE 8 MG/D5W 250 ML 250 ML IV SCH ×3 (04:49→21:24)
[2022-10-11 06:14] LABS: BASOPHILS # (AUTO) 0.1 (0.0-0.1); BASOPHILS % 0.9 % (0.0-1.0); EOSINOPHILS % 0.1 % (0.0-6.0); HEMATOCRIT 35.3 % (34.2-44.1); HEMOGLOBIN 10.7 g/dL (12.0-16.0); LYMPHOCYTES # (AUTO) 0.3 (1.0-3.2); LYMPHOCYTES % 2.2 % (18.0-39.1); MEAN CORPUSCULAR HEMOGLOBIN 29.6 pg (28-32); MEAN CORPUSCULAR HGB CONC 30.3 g/dL (31-35); MEAN CORPUSCULAR VOLUME 97.5 fL (81-99); MONOCYTES # (AUTO) 0.8 (0.2-0.8); MONOCYTES % 5.7 % (4.4-11.3); NEUTROPHILS % 89.3 % (38.7-80.0); RED BLOOD COUNT 3.62 x10e6/uL (3.6-5.1); RED CELL DISTRIBUTION WIDTH 15.9 % (11.7-14.4)
[2022-10-11 06:29] LABS: PLATELET COUNT 82 x10e3/uL (140-360)
[2022-10-11 06:41] LABS: ALBUMIN 2.5 g/dL (3.5-5.0); ALBUMIN/GLOBULIN RATIO 0.7 (0.8-2.0); ANION GAP 19.9 mmol/L (8-16); CALCIUM 8.2 mg/dL (8.4-10.2); CREATININE, SERUM 6.16 mg/dL (0.57-1.11); POTASSIUM 3.9 mmol/L (3.5-5.1)
[2022-10-11] MEDS: INSULIN LISPRO 100 UNIT/1 ML 3ML VIAL SQ SCH ×4 (07:25→20:29)
[2022-10-11 07:28] LABS: FREE T4 (FREE THYROXINE) 1.09 ng/dL (0.8-1.8); THYROID STIMULATING HORMONE 0.009 uIU/mL (0.350-4.940)
[2022-10-11] MEDS: SENNOSIDES 8.6 MG TAB PO SCH (08:18)
[2022-10-11] MEDS: AMIODARONE HCL 200 MG TAB PO SCH (08:18)
[2022-10-11] MEDS: DOCUSATE SODIUM 100 MG CAP PO SCH (08:18)
[2022-10-11] MEDS: APIXAB 2.5 MG TABLET PO SCH ×2 (08:19→16:52)
[2022-10-11] MEDS: MUPIROCIN 2% OINT 22 GM TUBE TOP SCH ×2 (08:23→16:52)
[2022-10-11 09:44] LABS: BAND NEUTROPHILS % (MANUAL) 3 %; EOSINOPHILS % (MANUAL) 1 % (0-7); LYMPHOCYTES % (MANUAL) 1 % (19-48); MONOCYTES % (MANUAL) 6 % (3.4-9.0); NEUTROPHILS % (MANUAL) 89 % (40-74); PLATELET ESTIMATE MODERATELY DECREASED; PLATELET MORPHOLOGY COMMENT NORMAL; RBC MORPHOLOGY COMMENT NORMAL; TOXIC GRANULATION SLIGHT; VACUOLE,WBC SLIGHT
[2022-10-11] MEDS ORDERED: GENTAMICIN SULFATE 300 MG in SODIUM CHLORIDE 0.9% 100 ML IV ONE (12:30)
[2022-10-11] MEDS: ALBUTEROL SULF 0.083% NEB SOLN 3 ML NEB NEB SCH ×2 (14:00→19:15)
[2022-10-11] MEDS ORDERED: SODIUM CHLORIDE 0.9% 1000ML 1,000 ML ONE ×2 (14:39→14:55)
[2022-10-12] VITALS (105 sets, daily range): BP systolic 77–141; BP diastolic 50–95; PULSE 85–137; RESP 15–31; TEMP 98–99; O2SAT 80–100
[2022-10-12] MEDS: ALBUTEROL SULF 0.083% NEB SOLN 3 ML NEB NEB SCH ×4 (01:02→19:00)
[2022-10-12] MEDS: NOREPINEPHRINE 8 MG/D5W 250 ML 250 ML IV SCH ×3 (04:05→22:47)
[2022-10-12] MEDS: ACETAMINOPHEN 325 MG TAB PO PRN (04:11)
[2022-10-12 06:41] LABS: BASOPHILS % 0.1 % (0.0-1.0); EOSINOPHILS # (AUTO) 0.1 (0.0-0.4); HEMOGLOBIN 10.3 g/dL (12.0-16.0); LYMPHOCYTES # (AUTO) 0.8 (1.0-3.2); LYMPHOCYTES % 7.5 % (18.0-39.1); MEAN CORPUSCULAR HEMOGLOBIN 29.8 pg (28-32); MEAN CORPUSCULAR HGB CONC 31.2 g/dL (31-35); MEAN CORPUSCULAR VOLUME 95.4 fL (81-99); MONOCYTES # (AUTO) 1.2 (0.2-0.8); MONOCYTES % 11.6 % (4.4-11.3); NEUTROPHILS # (AUTO) 8.3 (2.1-6.9); NEUTROPHILS % 79.4 % (38.7-80.0); PLATELET COUNT 73 x10e3/uL (140-360); RED BLOOD COUNT 3.46 x10e6/uL (3.6-5.1); RED CELL DISTRIBUTION WIDTH 15.7 % (11.7-14.4)
[2022-10-12 07:06] LABS: ALBUMIN 2.2 g/dL (3.5-5.0); ALBUMIN/GLOBULIN RATIO 0.6 (0.8-2.0); ANION GAP 20.4 mmol/L (8-16); CALCIUM 8.1 mg/dL (8.4-10.2); CREATININE, SERUM 7.28 mg/dL (0.57-1.11); POTASSIUM 4.4 mmol/L (3.5-5.1)
[2022-10-12] MEDS: MUPIROCIN 2% OINT 22 GM TUBE TOP SCH ×2 (09:00→17:00)
[2022-10-12] MEDS: INSULIN LISPRO 100 UNIT/1 ML 3ML VIAL SQ SCH ×4 (09:01→20:20)
[2022-10-12] MEDS: AMIODARONE HCL 200 MG TAB PO SCH (09:08)
[2022-10-12] MEDS: SENNOSIDES 8.6 MG TAB PO SCH (09:08)
[2022-10-12] MEDS: DOCUSATE SODIUM 100 MG CAP PO SCH (09:08)
[2022-10-12] MEDS: APIXAB 2.5 MG TABLET PO SCH ×2 (09:08→17:37)
[2022-10-12] MEDS ORDERED: ALBUMIN 25% 12.5GM 0.25 GM/ML BTL IV PRN (10:15)
[2022-10-12] MEDS ORDERED: SODIUM CHLORIDE 0.9% 250ML 500 ML IV PRN (10:15)
[2022-10-12] MEDS ORDERED: SODIUM CHLORIDE 0.9% 1000ML 2,000 ML IV PRN (10:15)
[2022-10-12] MEDS ORDERED: MANNITOL 25% 12.5GM/50 ML VIAL IV PRN (10:15)
[2022-10-12] MEDS ORDERED: HEPARIN SOD (PORCINE) 1000 UNIT/ML SDV IV PRN (10:15)
[2022-10-13] VITALS (85 sets, daily range): BP systolic 85–134; BP diastolic 57–92; PULSE 124–132; RESP 16–39; TEMP 97.9–98.1; O2SAT 89–98
[2022-10-13] MEDS: ALBUTEROL SULF 0.083% NEB SOLN 3 ML NEB NEB SCH ×4 (00:50→19:20)
[2022-10-13 06:52] LABS: BASOPHILS % 0.3 % (0.0-1.0); EOSINOPHILS # (AUTO) 0.2 (0.0-0.4); EOSINOPHILS % 2.3 % (0.0-6.0); HEMOGLOBIN 10.7 g/dL (12.0-16.0); LYMPHOCYTES # (AUTO) 0.9 (1.0-3.2); LYMPHOCYTES % 9.7 % (18.0-39.1); MEAN CORPUSCULAR HEMOGLOBIN 29.5 pg (28-32); MEAN CORPUSCULAR HGB CONC 31.5 g/dL (31-35); MEAN CORPUSCULAR VOLUME 93.7 fL (81-99); MONOCYTES # (AUTO) 1.1 (0.2-0.8); MONOCYTES % 11.6 % (4.4-11.3); NEUTROPHILS # (AUTO) 7.1 (2.1-6.9); NEUTROPHILS % 75.5 % (38.7-80.0); PLATELET COUNT 88 x10e3/uL (140-360); RED BLOOD COUNT 3.63 x10e6/uL (3.6-5.1); RED CELL DISTRIBUTION WIDTH 15.6 % (11.7-14.4)
[2022-10-13 07:11] LABS: ALBUMIN 2.3 g/dL (3.5-5.0); ALBUMIN/GLOBULIN RATIO 0.5 (0.8-2.0); ANION GAP 21.4 mmol/L (8-16); CALCIUM 8.6 mg/dL (8.4-10.2); CREATININE, SERUM 5.78 mg/dL (0.57-1.11); POTASSIUM 4.4 mmol/L (3.5-5.1)
[2022-10-13] MEDS: MUPIROCIN 2% OINT 22 GM TUBE TOP SCH ×2 (07:44→17:00)
[2022-10-13] MEDS: INSULIN LISPRO 100 UNIT/1 ML 3ML VIAL SQ SCH ×4 (08:22→20:25)
[2022-10-13] MEDS: AMIODARONE HCL 200 MG TAB PO SCH (08:23)
[2022-10-13] MEDS: DOCUSATE SODIUM 100 MG CAP PO SCH (08:23)
[2022-10-13] MEDS: SENNOSIDES 8.6 MG TAB PO SCH (08:23)
[2022-10-13] MEDS: NOREPINEPHRINE INJ 4MG/4ML 8 MG in SODIUM CHLORIDE 0.9% 250ML 250 ML IV SCH (12:06)
[2022-10-13] MEDS: APIXAB 2.5 MG TABLET PO SCH (20:24)
[2022-10-13] MEDS: INSULIN GLARGINE 100 UNITS/ML VIAL SQ SCH (20:29)
[2022-10-14] VITALS (93 sets, daily range): BP systolic 78–123; BP diastolic 49–95; PULSE 118–131; RESP 16–35; TEMP 97.9–98.7; O2SAT 84–100
[2022-10-14] MEDS: NOREPINEPHRINE INJ 4MG/4ML 8 MG in SODIUM CHLORIDE 0.9% 250ML 250 ML IV SCH ×4 (00:27→12:00)
[2022-10-14] MEDS ORDERED: NOREPINEPHRINE 8 MG/D5W 250 ML 250 ML IV SCH (00:30)
[2022-10-14] MEDS: ALBUTEROL SULF 0.083% NEB SOLN 3 ML NEB NEB SCH ×4 (01:00→19:22)
[2022-10-14 06:34] LABS: BASOPHILS # (AUTO) 0.1 (0.0-0.1); BASOPHILS % 0.8 % (0.0-1.0); EOSINOPHILS # (AUTO) 0.2 (0.0-0.4); EOSINOPHILS % 2.6 % (0.0-6.0); HEMATOCRIT 34.1 % (34.2-44.1); HEMOGLOBIN 10.6 g/dL (12.0-16.0); LYMPHOCYTES # (AUTO) 1.2 (1.0-3.2); LYMPHOCYTES % 13.2 % (18.0-39.1); MEAN CORPUSCULAR HEMOGLOBIN 29.5 pg (28-32); MEAN CORPUSCULAR HGB CONC 31.1 g/dL (31-35); MONOCYTES % 11.3 % (4.4-11.3); NEUTROPHILS # (AUTO) 6.4 (2.1-6.9); NEUTROPHILS % 71.3 % (38.7-80.0); PLATELET COUNT 106 x10e3/uL (140-360); RED BLOOD COUNT 3.59 x10e6/uL (3.6-5.1); RED CELL DISTRIBUTION WIDTH 15.4 % (11.7-14.4)
[2022-10-14 07:09] LABS: ALBUMIN 2.2 g/dL (3.5-5.0); ALBUMIN/GLOBULIN RATIO 0.6 (0.8-2.0); ANION GAP 21.4 mmol/L (8-16); CALCIUM 8.2 mg/dL (8.4-10.2); CREATININE, SERUM 6.77 mg/dL (0.57-1.11); MAGNESIUM 2.2 MG/DL (1.3-2.1); POTASSIUM 4.4 mmol/L (3.5-5.1)
[2022-10-14] MEDS: INSULIN LISPRO 100 UNIT/1 ML 3ML VIAL SQ SCH ×4 (07:46→20:57)
[2022-10-14] MEDS: MUPIROCIN 2% OINT 22 GM TUBE TOP SCH ×2 (08:31→17:00)
[2022-10-14] MEDS: DOCUSATE SODIUM 100 MG CAP PO SCH (08:31)
[2022-10-14] MEDS: SENNOSIDES 8.6 MG TAB PO SCH (08:31)
[2022-10-14] MEDS: AMIODARONE HCL 200 MG TAB PO SCH (08:31)
[2022-10-14] MEDS: MIDODRINE HCL 5 MG TABLET PO SCH ×3 (08:50→16:29)
[2022-10-14 09:13] LABS: BAND NEUTROPHILS % (MANUAL) 1 %; EOSINOPHILS % (MANUAL) 2 % (0-7); LYMPHOCYTES % (MANUAL) 14 % (19-48); MONOCYTES % (MANUAL) 10 % (3.4-9.0); NEUTROPHILS % (MANUAL) 73 % (40-74); PLATELET ESTIMATE SLIGHTLY DECREASED; PLATELET MORPHOLOGY COMMENT NORMAL; RBC MORPHOLOGY COMMENT NORMAL
[2022-10-14] MEDS ORDERED: LOPERAMIDE HCL 2 MG CAP PO ONE (16:15)
[2022-10-14] MEDS: APIXAB 2.5 MG TABLET PO SCH (20:27)
[2022-10-14] MEDS: INSULIN GLARGINE 100 UNITS/ML VIAL SQ SCH (20:58)
[2022-10-15] VITALS (53 sets, daily range): BP systolic 62–121; BP diastolic 34–87; PULSE 49–250; RESP 13–33; TEMP 97.8–98.8; O2SAT 75–99
[2022-10-15] MEDS: ALBUTEROL SULF 0.083% NEB SOLN 3 ML NEB NEB SCH ×4 (00:45→19:35)
[2022-10-15 05:20] LABS: BASOPHILS % 0.4 % (0.0-1.0); EOSINOPHILS # (AUTO) 0.2 (0.0-0.4); EOSINOPHILS % 2.2 % (0.0-6.0); HEMATOCRIT 31.5 % (34.2-44.1); HEMOGLOBIN 9.8 g/dL (12.0-16.0); LYMPHOCYTES # (AUTO) 1.2 (1.0-3.2); LYMPHOCYTES % 16.9 % (18.0-39.1); MEAN CORPUSCULAR HEMOGLOBIN 29.1 pg (28-32); MEAN CORPUSCULAR HGB CONC 31.1 g/dL (31-35); MEAN CORPUSCULAR VOLUME 93.5 fL (81-99); MONOCYTES # (AUTO) 0.7 (0.2-0.8); NEUTROPHILS % 69.4 % (38.7-80.0); PLATELET COUNT 126 x10e3/uL (140-360); RED BLOOD COUNT 3.37 x10e6/uL (3.6-5.1); RED CELL DISTRIBUTION WIDTH 15.6 % (11.7-14.4)
[2022-10-15 05:39] LABS: ALBUMIN 2.1 g/dL (3.5-5.0); ALBUMIN/GLOBULIN RATIO 0.5 (0.8-2.0); ANION GAP 21.5 mmol/L (8-16); CALCIUM 7.9 mg/dL (8.4-10.2); CREATININE, SERUM 8.09 mg/dL (0.57-1.11); POTASSIUM 4.5 mmol/L (3.5-5.1)
[2022-10-15] MEDS: INSULIN LISPRO 100 UNIT/1 ML 3ML VIAL SQ SCH ×4 (07:37→21:20)
[2022-10-15] MEDS: MIDODRINE HCL 5 MG TABLET PO SCH ×3 (08:07→17:01)
[2022-10-15] MEDS: MUPIROCIN 2% OINT 22 GM TUBE TOP SCH (09:00)
[2022-10-15] MEDS: AMIODARONE HCL 200 MG TAB PO SCH ×3 (09:00→18:20)
[2022-10-15] MEDS: SENNOSIDES 8.6 MG TAB PO SCH (09:04)
[2022-10-15] MEDS: CEFTRIAXONE 2 GM in SODIUM CHLORIDE 0.9% 100 ML IV SCH (09:04)
[2022-10-15] MEDS: DOCUSATE SODIUM 100 MG CAP PO SCH (09:04)
[2022-10-15 09:24] LABS: EOSINOPHILS % (MANUAL) 3 % (0-7); LYMPHOCYTES % (MANUAL) 19 % (19-48); MONOCYTES % (MANUAL) 10 % (3.4-9.0); NEUTROPHILS % (MANUAL) 65 % (40-74)
[2022-10-15 09:25] LABS: PLATELET ESTIMATE SLIGHTLY DECREASED; PLATELET MORPHOLOGY COMMENT NORMAL; RBC MORPHOLOGY COMMENT NORMAL
[2022-10-15] MEDS ORDERED: ALBUMIN 25% 12.5GM 0.25 GM/ML BTL IV PRN (11:45)
[2022-10-15] MEDS: NOREPINEPHRINE INJ 4MG/4ML 8 MG in SODIUM CHLORIDE 0.9% 250ML 250 ML IV SCH (12:00)
[2022-10-15] MEDS ORDERED: DIGOXIN INJ 0.25 MG/ML 2 ML AMP IV ONE (17:30)
[2022-10-15] MEDS: APIXABAN 5 MG TABLET PO SCH (18:20)
[2022-10-15] MEDS: INSULIN GLARGINE 100 UNITS/ML VIAL SQ SCH (21:21)
[2022-10-16] VITALS (19 sets, daily range): BP systolic 85–116; BP diastolic 56–88; PULSE 121–131; RESP 13–32; TEMP 98.1–99.1; O2SAT 91–99
[2022-10-16] MEDS: ALBUTEROL SULF 0.083% NEB SOLN 3 ML NEB NEB SCH ×4 (00:30→19:00)
[2022-10-16] MEDS: INSULIN LISPRO 100 UNIT/1 ML 3ML VIAL SQ SCH ×4 (07:30→21:00)
[2022-10-16] MEDS: MIDODRINE HCL 5 MG TABLET PO SCH ×3 (07:53→17:40)
[2022-10-16] MEDS: APIXABAN 5 MG TABLET PO SCH ×2 (08:31→17:40)
[2022-10-16] MEDS: AMIODARONE HCL 200 MG TAB PO SCH ×2 (08:32→17:41)
[2022-10-16] MEDS: DOCUSATE SODIUM 100 MG CAP PO SCH (08:32)
[2022-10-16] MEDS: CEFTRIAXONE 2 GM in SODIUM CHLORIDE 0.9% 100 ML IV SCH (08:32)
[2022-10-16] MEDS: SENNOSIDES 8.6 MG TAB PO SCH (08:32)
[2022-10-16] MEDS: NOREPINEPHRINE INJ 4MG/4ML 8 MG in SODIUM CHLORIDE 0.9% 250ML 250 ML IV SCH (12:00)
[2022-10-16] MEDS ORDERED: DIGOXIN INJ 0.25 MG/ML 2 ML AMP IV ONE (13:00)
[2022-10-16] MEDS: INSULIN GLARGINE 100 UNITS/ML VIAL SQ SCH (21:00)
[2022-10-17] VITALS (47 sets, daily range): BP systolic 60–144; BP diastolic 52–87; PULSE 61–136; RESP 14–29; TEMP 98.2–98.3; O2SAT 85–100
[2022-10-17] MEDS: ALBUTEROL SULF 0.083% NEB SOLN 3 ML NEB NEB SCH ×4 (01:00→19:00)
[2022-10-17] MEDS: INSULIN LISPRO 100 UNIT/1 ML 3ML VIAL SQ SCH ×4 (07:30→21:00)
[2022-10-17] MEDS: MIDODRINE HCL 5 MG TABLET PO SCH ×3 (08:00→16:39)
[2022-10-17 08:09] LABS: BASOPHILS % 0.3 % (0.0-1.0); EOSINOPHILS # (AUTO) 0.1 (0.0-0.4); EOSINOPHILS % 1.7 % (0.0-6.0); HEMATOCRIT 32.4 % (34.2-44.1); LYMPHOCYTES % 15.2 % (18.0-39.1); MEAN CORPUSCULAR HEMOGLOBIN 29.5 pg (28-32); MEAN CORPUSCULAR HGB CONC 30.9 g/dL (31-35); MEAN CORPUSCULAR VOLUME 95.6 fL (81-99); MONOCYTES # (AUTO) 0.6 (0.2-0.8); MONOCYTES % 9.2 % (4.4-11.3); NEUTROPHILS # (AUTO) 4.7 (2.1-6.9); NEUTROPHILS % 72.4 % (38.7-80.0); PLATELET COUNT 220 x10e3/uL (140-360); RED BLOOD COUNT 3.39 x10e6/uL (3.6-5.1); RED CELL DISTRIBUTION WIDTH 15.9 % (11.7-14.4)
[2022-10-17 08:22] LABS: INR 1.14; PROTHROMBIN TIME 15.3 seconds (11.9-14.5)
[2022-10-17 08:27] LABS: ALBUMIN 2.4 g/dL (3.5-5.0); ALBUMIN/GLOBULIN RATIO 0.7 (0.8-2.0); ANION GAP 20.5 mmol/L (8-16); CALCIUM 7.3 mg/dL (8.4-10.2); CREATININE, SERUM 6.87 mg/dL (0.57-1.11); PHOSPHORUS 7.5 MG/DL (2.3-4.7); POTASSIUM 4.5 mmol/L (3.5-5.1)
[2022-10-17] MEDS ORDERED: GENTAMICIN 120MG/NS 100ML 100 ML IV STA (08:52)
[2022-10-17] MEDS: SENNOSIDES 8.6 MG TAB PO SCH (09:00)
[2022-10-17] MEDS ORDERED: CEFAZOLIN SODIUM 2 GM in SODIUM CHLORIDE 0.9% 100 ML IV ONE (09:00)
[2022-10-17] MEDS: APIXABAN 5 MG TABLET PO SCH (09:00)
[2022-10-17] MEDS: DOCUSATE SODIUM 100 MG CAP PO SCH (09:00)
[2022-10-17] MEDS: AMIODARONE HCL 200 MG TAB PO SCH ×2 (09:00→16:39)
[2022-10-17] MEDS ORDERED: DIGOXIN INJ 0.25 MG/ML 2 ML AMP IV ONE (09:30)
[2022-10-17] MEDS: NOREPINEPHRINE INJ 4MG/4ML 8 MG in SODIUM CHLORIDE 0.9% 250ML 250 ML IV SCH (12:00)
[2022-10-17] MEDS ORDERED: BENZOCAINE 20% SPR 60 ML CAN ONE (12:15)
[2022-10-17] MEDS ORDERED: SODIUM CHLORIDE 0.9% 1000ML 1,000 ML ONE (12:15)
[2022-10-17] MEDS: CEFTRIAXONE 2 GM in SODIUM CHLORIDE 0.9% 100 ML IV SCH (13:43)
[2022-10-17] MEDS: INSULIN GLARGINE 100 UNITS/ML VIAL SQ SCH (21:00)
[2022-10-18] VITALS (27 sets, daily range): BP systolic 106–137; BP diastolic 47–90; PULSE 48–130; RESP 12–25; TEMP 98.1–98.3; O2SAT 82–100
[2022-10-18] MEDS: ALBUTEROL SULF 0.083% NEB SOLN 3 ML NEB NEB SCH ×5 (01:00→23:35)
[2022-10-18 04:53] LABS: BASOPHILS % 0.3 % (0.0-1.0); EOSINOPHILS # (AUTO) 0.1 (0.0-0.4); EOSINOPHILS % 1.6 % (0.0-6.0); HEMATOCRIT 33.4 % (34.2-44.1); HEMOGLOBIN 10.1 g/dL (12.0-16.0); LYMPHOCYTES % 13.7 % (18.0-39.1); MEAN CORPUSCULAR HEMOGLOBIN 29.1 pg (28-32); MEAN CORPUSCULAR HGB CONC 30.2 g/dL (31-35); MEAN CORPUSCULAR VOLUME 96.3 fL (81-99); MONOCYTES # (AUTO) 0.7 (0.2-0.8); MONOCYTES % 9.2 % (4.4-11.3); NEUTROPHILS # (AUTO) 5.5 (2.1-6.9); NEUTROPHILS % 74.3 % (38.7-80.0); PLATELET COUNT 236 x10e3/uL (140-360); RED BLOOD COUNT 3.47 x10e6/uL (3.6-5.1); RED CELL DISTRIBUTION WIDTH 15.6 % (11.7-14.4)
[2022-10-18 05:15] LABS: ALBUMIN 2.6 g/dL (3.5-5.0); ALBUMIN/GLOBULIN RATIO 0.7 (0.8-2.0); ANION GAP 17.1 mmol/L (8-16); CALCIUM 7.6 mg/dL (8.4-10.2); CREATININE, SERUM 4.94 mg/dL (0.57-1.11); POTASSIUM 4.1 mmol/L (3.5-5.1)
[2022-10-18] MEDS: INSULIN LISPRO 100 UNIT/1 ML 3ML VIAL SQ SCH ×4 (07:30→21:00)
[2022-10-18] MEDS: MIDODRINE HCL 5 MG TABLET PO SCH ×3 (07:41→16:00)
[2022-10-18] MEDS: DOCUSATE SODIUM 100 MG CAP PO SCH (07:41)
[2022-10-18] MEDS: SENNOSIDES 8.6 MG TAB PO SCH (07:41)
[2022-10-18] MEDS: CEFTRIAXONE 2 GM in SODIUM CHLORIDE 0.9% 100 ML IV SCH (08:03)
[2022-10-18] MEDS: AMIODARONE HCL 200 MG TAB PO SCH ×2 (08:03→16:54)
[2022-10-18] MEDS ORDERED: HEPARIN 25,000 UNIT/D5W 250ML 1,000 UNIT in DEXTROSE 5% 250ML 250 ML IV SCH ×2 (10:15→11:05)
[2022-10-18] MEDS ORDERED: HEPARIN SOD (PORCINE) 5,000 UNIT/ML VIAL IV ONE (11:00)
[2022-10-18] MEDS: NOREPINEPHRINE INJ 4MG/4ML 8 MG in SODIUM CHLORIDE 0.9% 250ML 250 ML IV SCH (11:09)
[2022-10-18] MEDS ORDERED: KETAMINE 50MG/5ML SYR ONE (11:10)
[2022-10-18] MEDS ORDERED: FENTANYL CITRATE/PF 100MCG/2 ML INJ ONE (12:23)
[2022-10-18] MEDS ORDERED: PERFLUTREN LIPID MICROSPHERES 2 ML VIAL IV ONE (12:25)
[2022-10-18] MEDS ORDERED: ETOMIDATE 2 MG/ML 10 ML INJ IV ONE (12:45)
[2022-10-18] MEDS ORDERED: ONDANSETRON HCL INJ 2MG/ML 2ML 2 MG/ML VIAL ONE (12:45)
[2022-10-18] MEDS ORDERED: POVIDONE IODINE 0.05% 0.05 % ML PO ONE (12:45)
[2022-10-18] MEDS ORDERED: LIDOCAINE HCL 2% LOCAL INJ 5 ML SDV VIAL INJ ONE (12:45)
[2022-10-18] MEDS ORDERED: PROPOFOL IV EMULSION 10 MG/ML 20 ML VIAL ONE (12:45)
[2022-10-18] MEDS: APIXABAN 5 MG TABLET PO SCH (16:54)
[2022-10-18] MEDS: INSULIN GLARGINE 100 UNITS/ML VIAL SQ SCH (21:00)
[2022-10-19] VITALS (7 sets, daily range): BP systolic 113–142; BP diastolic 54–75; PULSE 72–84; RESP 17–19; TEMP 97.5–98.3; O2SAT 91–96
[2022-10-19 06:52] LABS: BASOPHILS % 0.5 % (0.0-1.0); EOSINOPHILS # (AUTO) 0.1 (0.0-0.4); EOSINOPHILS % 1.9 % (0.0-6.0); HEMATOCRIT 35.1 % (34.2-44.1); HEMOGLOBIN 10.1 g/dL (12.0-16.0); LYMPHOCYTES # (AUTO) 0.9 (1.0-3.2); LYMPHOCYTES % 12.5 % (18.0-39.1); MEAN CORPUSCULAR HEMOGLOBIN 29.3 pg (28-32); MEAN CORPUSCULAR HGB CONC 28.8 g/dL (31-35); MEAN CORPUSCULAR VOLUME 101.7 fL (81-99); MONOCYTES # (AUTO) 0.5 (0.2-0.8); MONOCYTES % 6.8 % (4.4-11.3); NEUTROPHILS # (AUTO) 5.7 (2.1-6.9); NEUTROPHILS % 77.6 % (38.7-80.0); PLATELET COUNT 281 x10e3/uL (140-360); RED BLOOD COUNT 3.45 x10e6/uL (3.6-5.1); RED CELL DISTRIBUTION WIDTH 15.7 % (11.7-14.4)
[2022-10-19] MEDS: ALBUTEROL SULF 0.083% NEB SOLN 3 ML NEB NEB SCH ×2 (07:00→13:00)
[2022-10-19 07:16] LABS: ALBUMIN 2.8 g/dL (3.5-5.0); ALBUMIN/GLOBULIN RATIO 0.7 (0.8-2.0); ANION GAP 21.6 mmol/L (8-16); CALCIUM 7.2 mg/dL (8.4-10.2); CREATININE, SERUM 6.49 mg/dL (0.57-1.11); POTASSIUM 4.6 mmol/L (3.5-5.1)
[2022-10-19] MEDS: INSULIN LISPRO 100 UNIT/1 ML 3ML VIAL SQ SCH ×2 (07:30→11:30)
[2022-10-19] MEDS: SENNOSIDES 8.6 MG TAB PO SCH (09:00)
[2022-10-19] MEDS: DOCUSATE SODIUM 100 MG CAP PO SCH (09:00)
[2022-10-19] MEDS: MIDODRINE HCL 5 MG TABLET PO SCH ×2 (09:10→12:30)
[2022-10-19] MEDS: APIXABAN 5 MG TABLET PO SCH (09:10)
[2022-10-19] MEDS: AMIODARONE HCL 200 MG TAB PO SCH (09:10)
[2022-10-19] MEDS: CEFTRIAXONE 2 GM in SODIUM CHLORIDE 0.9% 100 ML IV SCH (09:11)
[2022-10-19] MEDS ORDERED: SODIUM CHLORIDE 0.9% 1000ML 2,000 ML IV PRN (10:30)
[2022-10-19] MEDS ORDERED: ALBUMIN 25% 12.5GM 0.25 GM/ML BTL IV PRN (10:30)
== END 2022-10-19 16:03 | disposition home or self-care (01) | DRG 871 ==
LOC: ER 12:32 → ERHOLD 14:50 → ICU 20:30 → MED/SURG2 10-18 18:18
PROVIDERS: ADMIT Internal Medicine; ATTEND Internal Medicine
PROC: 0JHL3XZ Insertion of Tunneled Vascular Access Device into Right Upper Leg Subcutaneous Tissue and Fascia, Percutaneous Approach (ICD-10-PCS; 2022-10-10)
PROC: 5A1D70Z Performance of Urinary Filtration, Intermittent, Less than 6 Hours Per Day (ICD-10-PCS; principal; 2022-10-11)
PROC: 5A2204Z Restoration of Cardiac Rhythm, Single (ICD-10-PCS; 2022-10-18)
DX: A41.59 Other Gram-negative sepsis (principal); N18.6 End stage renal disease; R65.21 Severe sepsis with septic shock; I13.2 Hypertensive heart and chronic kidney disease with heart failure and with stage 5 chronic kidney disease, or end stage renal disease; N39.0 Urinary tract infection, site not specified; Z68.43 Body mass index [BMI] 50.0-59.9, adult; E87.20 Acidosis, unspecified; N12 Tubulo-interstitial nephritis, not specified as acute or chronic; I48.92 Unspecified atrial flutter; E11.22 Type 2 diabetes mellitus with diabetic chronic kidney disease; I50.9 Heart failure, unspecified; E66.01 Morbid (severe) obesity due to excess calories; D63.1 Anemia in chronic kidney disease; B96.1 Klebsiella pneumoniae [K. pneumoniae] as the cause of diseases classified elsewhere; I48.0 Paroxysmal atrial fibrillation; E78.5 Hyperlipidemia, unspecified; E03.9 Hypothyroidism, unspecified; E11.649 Type 2 diabetes mellitus with hypoglycemia without coma; I25.10 Atherosclerotic heart disease of native coronary artery without angina pectoris; E11.65 Type 2 diabetes mellitus with hyperglycemia; Z20.822 Contact with and (suspected) exposure to COVID-19; Z99.2 Dependence on renal dialysis; Z87.891 Personal history of nicotine dependence; Z79.01 Long term (current) use of anticoagulants; Z79.4 Long term (current) use of insulin
CPT/HCPCS: 36415; 36555; 51700; 71045; 71250; 74176; 80053; 81001; 82948; 83036; 83605; 83735; 84100; 84439; 84443; 85025; 85610; 85730; 86704; 86705; 86706; 87040; 87071; 87086; 87186; 87205; 87340; 93005; 93306; 93312; 93320; 93325; 94640; 94799; 96372; 99252; 99284; J0696; J1160; J1580; J1644; J1815; J2001; J2185; J2405; J7030; J7040; J7050